=== PATIENT | female | born 2000 | race Caucasian/White ===

== ENCOUNTER 2020-11-05 13:08 | Emergency (ER) | payer OTHER, SELFPAY ==
--- NOTE | ~2020-11-05 | XR_ITS ---
EXAMINATION: XR ABDOMEN KUB CLINICAL INDICATION: Evaluate stool burden COMPARISON: None TECHNIQUE: AP view of the abdomen. FINDINGS: The bowel gas pattern is normal with no evidence of ileus or obstruction. No unusual soft tissue calcifications are noted. No significant stool burden within the colon is identified. There is mild scoliosis of the lumbar spine convex left. Visualized pelvic bones unremarkable. XR/XR KUB IMPRESSION: Normal bowel gas pattern. No significant stool burden.
[2020-11-05 13:35] VITALS: BP 144/96; PULSE 130; RESP 18; O2SAT 99; BMI 18.3
[2020-11-05 13:40] VITALS: TEMP 37
--- NOTE | 2020-11-05 14:14 | ED.ABDPAIN ---
HPI - Abdominal Pain General Chief Complaint: Abdominal Pain Stated Complaint: constipation Time Seen by Provider: 11/05/20 13:59 Source: patient Mode of arrival: ambulatory Limitations: no limitations History of Present Illness HPI narrative: 20-year-old female previously healthy here with complaints of constipation x1 week. The patient tells me that she has tried Dulcolax, 1 suppository, 1 Fleet enema but has not had a successful bowel movement. She tells me that she is able to pass a small amount of stool but it is very hard. No abdominal pain, vomiting, fevers, chills. MD elicited complaint: abdominal pain Related Data Previous Rx's Medication Instructions Recorded polyethylene glycol 3350 [Miralax] 17 g PO DAILY #119 g 11/05/20 Allergies Allergy/AdvReac Type Severity Reaction Status Date / Time sesame seed [SESAME SEED] Allergy Severe ANAPHYLAXIS Verified 11/05/20 13:39 walnut [WALNUT] Allergy Severe ANAPHYLAXIS Verified 11/05/20 13:39 Review of Systems Review of Systems Yes all other systems are reviewed and are negative Constitutional: Reports no additional constitutional complaints, Denies body ache(s), Denies chills, Denies fever(s), Denies headache(s) and Denies weakness Eyes: Reports no additional eye complaints and Denies change in vision Reports system reviewed and no additional complaints, except as documented, Denies dizziness, Denies headache(s), Denies nasal congestion, Denies nasal discharge and Denies neck pain Cardiovascular: Reports no additional cardiovascular complaints, Denies chest pain, Denies leg edema and Denies dyspnea Respiratory: Reports no additional respiratory complaints, Denies cough and Denies dyspnea Gastrointestinal: Reports no additional gastrointestinal complaints, Denies abdominal pain, Reports constipation, Denies diarrhea, Denies nausea and Denies vomiting Genitourinary: Reports no additional female genitourinary complaints and Denies urinary incontinence Musculoskeletal: Reports no additional musculoskeletal complaints, Denies back pain, Denies arthralgias, Denies joint swelling, Denies neck pain, Denies numbness and Denies tingling Skin/Breast: Reports system reviewed and no additional complaints, except as docu and Denies rash Reports system reviewed and no additional complaints, except as documented, Denies Abnormal speech present, Denies dizziness, Denies headache(s), Denies numbness, Denies tingling and Denies weakness Physical Exam Vital Signs: Vital Signs: Last Vital Signs Temp 98.6 F 11/05/20 13:40 Pulse 130 H 11/05/20 13:35 Resp 18 11/05/20 13:35 BP 144/96 H 11/05/20 13:35 Pulse Ox 99 11/05/20 13:35 Body Mass Index 18.3 Const: General: cooperative, healthy appearing, comfortable and no acute distress Orientation/consciousness: patient oriented x3 Limitations: no limitations HENMT: Head: Yes normal to inspection Ears: hearing grossly normal bilaterally General nose exam: Normal external nose present Face and sinus: Yes normal facial exam Mouth: Normal oral and palatal mucosa present Throat: Yes posterior oropharynx normal Eyes: General: appearance normal, both eyes and all related structures Pupils: Equal, round and reactive pupils present Neck: Neck: Yes normal visual inspection Chest: Chest palpation & inspection: normal inspection of the chest Resp: Effort & Inspection: normal respiratory effort Auscultation: clear to auscultation bilaterally Cardio: Rate: regular rate Rhythm: regular rhythm Peripheral pulses: Peripheral pulses 2+ throughout GI: Inspection: Yes normal to inspection Palpation (GI): Soft to palpation and nontender Auscultation: normal bowel sounds Back/Spine/Pelvis: Thoracic/Lumbar Spine: thoracic and lumbar spine normal to inspection Skin: General skin exam: no rashes or lesions noted Neuro: General: patient oriented x3, no focal motor deficits and normal sensation to monofilament Cranial nerves: Yes Equal, round and reactive pupils present Cognition (Neuro): normal cognition Speech: No Abnormal speech present Gait exam (Neuro): Normal gait present Motor exam (neuro): 5/5 motor strength present throughout Extrem: General: Yes normal to inspection Course Course Course Narrative: Constipation x1 week on relief with [id number] medications. Will check KUB. 1515-[id number] shows no significant stool burden. I did talk to the patient she tells me that she has had varying constipation and diarrhea with intermittent abdominal pain for months to years. Took this is worsened after eating. She also suffers with bloating and gas after eating. May have underlying IBS component. I reviewed this with the patient. Recommend that she follow up outpatient with GI. Reviewed worrisome signs and symptoms and when to return to the emergency department. Comfortable with discharge home. MDM - Abdominal Pain Medical Records Attestation: I reviewed the patient's medical records. Lab Data Attestation: I reviewed the patient's lab results. Labs: Lab Results 11/05/20 Range/Units 14:15 Urine Test NEGATIVE (NEGATIVE) Imaging Data kub: Attestation: I personally reviewed and interpreted this imaging study as follows: Radiologist's impression: EXAMINATION: XR ABDOMEN KUB CLINICAL INDICATION: Evaluate stool burden COMPARISON: None TECHNIQUE: AP view of the abdomen. FINDINGS: The bowel gas pattern is normal with no evidence of ileus or obstruction. No unusual soft tissue calcifications are noted. No significant stool burden within the colon is identified. There is mild scoliosis of the lumbar spine convex left. Visualized pelvic bones unremarkable. XR/XR KUB IMPRESSION: Normal bowel gas pattern. No significant stool burden. Discharge Plan Discharge Clinical Impression: Constipation Patient Disposition: Home, Self-Care Instructions: Constipation (ED) Additional Instructions: Increase fluids, fiber in the diet Start miralax as discussed Prescriptions: New polyethylene glycol 3350 [Miralax] 17 gram/dose powder 17 g PO DAILY Qty: 119 RF: 0 Referrals: Fred Carcamo [Physician] - 2 days PMF Past Medical History Attestation statement: The following information was validated with the patient. Source: old records reviewed Medical History No known health problems Social History Social History Smoking Status: Never smoker Use of substances other than those prescribed or required for medical reasons: No Advance Directives: No Advance Directives Information Provided: No
[2020-11-05 14:24] LABS: UPreg QC Valid YES; Urine Pregnancy NEGATIVE (NEGATIVE)
== END 2020-11-05 15:34 | disposition home or self-care (01) ==
PROVIDERS: Nurse Practitioner Family; Emergency Provider Emergency Medicine Emergency Medical Services; PCP Internal Medicine
DX: K59.00 Constipation, unspecified (principal)
CPT/HCPCS: 74018; 81025; 99283; 99284

== ENCOUNTER 2021-02-28 13:38 | Outpatient (REF) | payer OTHER, SELFPAY ==
--- NOTE | ~2021-02-28 | US_ITS ---
EXAMINATION: PELVIC ULTRASOUND CLINICAL INFORMATION: Pain COMPARISON: None TECHNIQUE: Transabdominal and transvaginal pelvic ultrasound was performed. Transvaginal exam was performed for better visualization of the uterus and ovaries. FINDINGS: The uterus is anteverted and measures 7.9 x 2.9 x 4.3 cm. No focal uterine lesion is seen. Endometrial thickness is normal measuring 0.3 cm. There is fluid seen in the endocervical canal. The ovaries are normal-appearing. The right ovary measures 2.5 x 1.7 x 1.3 cm and the left ovary measures 2.4 x 1.1 x 1.6 cm. There is no fluid in the pelvis. US/US pelvic and transvaginal IMPRESSION: Unremarkable exam.
[2021-02-28 14:36] LABS: MANUAL DIFF FLAG NO
[2021-02-28 14:41] LABS: Basophils Percent Auto 0.4 % (0-2); Eosinophils Absolute Auto 0.1 X10*3/uL (0.0-0.4); Hematocrit 40.6 % (37-47); Hemoglobin 13.5 g/dl (12.0-16.0); Imm Gran Abs Auto 0.04 X10*3/uL (0.00-0.03); Imm Gran Pct Auto 0.5 % (0.0-0.4); Lymphocytes Absolute Auto 2.6 X10*3/uL (1.2-4.9); Lymphocytes Percent Auto 31.4 % (20-40); Mean Corpuscular HGB Conc 33.3 g/dl (31.0-35.0); Mean Corpuscular Hemoglobin 28.6 pg (27.0-33.0); Mean Platelet Volume 9.2 fL (9.4-12.3); Monocytes Absolute Auto 0.4 X10*3/uL (0.1-1.2); Monocytes Percent Auto 4.9 % (2-11); Neutrophils Percent Auto 61.8 % (45-73); Platelet Count 289 X10*3/uL (160-400); Red Blood Count 4.72 X10*6/uL (4.20-5.50); Red Cell Distribution Width 13.2 % (11.0-16.0); White Blood Count 8.1 X10*3/uL (4.8-10.8)
[2021-02-28 15:10] LABS: Alanine Aminotransferase 7 U/L (0-31); Albumin Level 4.5 g/dL (3.5-5.0); Alkaline Phosphatase 42 U/L (39-117); Amylase 74 U/L (28-100); Aspartate Amino Transferase 15 U/L (5-31); Bilirubin Direct 0.2 mg/dL (0.0-0.5); Bilirubin Total 0.6 mg/dL (0.0-1.0); C Reactive Protein 0.09 mg/dL (< or = 0.50); Lipase 33 U/L (8-78); Total Protein 7.1 g/dL (6.5-8.0)
[2021-02-28 15:25] LABS: Erythrocyte Sedimentation Rate 1 MM/HR (0-20)
[2021-02-28 15:36] LABS: TSH reflex Free T4 1.63 uIU/mL (0.32-4.0)
[2021-03-02 16:52] LABS: Immunoglobulin A 114 mg/dL (47-310)
[2021-03-06 22:22] LABS: Gliadin Deamidated IgA Ab 2 Units; Gliadin Deamidated IgG Ab 1 Units
[2021-03-07 13:42] LABS: Transglutaminase Ab IgG 2 U/mL; Transglutaminase IgA 1 U/mL
[2021-03-08 15:56] LABS: Endomysial IgA Antibody Negative (Negative)
== END 2021-02-28 13:39 | disposition home or self-care (01) ==
LOC: HO.US 13:38
PROVIDERS: PCP Internal Medicine; Visit Provider Internal Medicine
DX: K58.2 Mixed irritable bowel syndrome (principal); R10.30 Lower abdominal pain, unspecified
CPT/HCPCS: 36415; 76830; 76856; 80076; 82150; 82784; 83516; 83690; 84443; 85025; 85652; 86140; 86255; 86256

== ENCOUNTER 2022-06-05 09:06 | Outpatient (REF) | payer OTHER, SELFPAY ==
[2022-06-05 11:05] LABS: MANUAL DIFF FLAG NO
[2022-06-05 11:10] LABS: Basophils Percent Auto 0.3 % (0-2); Eosinophils Absolute Auto 0.2 X10*3/uL (0.0-0.4); Eosinophils Percent Auto 1.3 % (0-4); Hematocrit 40.8 % (37.0-47.0); Hemoglobin 13.8 g/dl (12.0-16.0); Imm Gran Abs Auto 0.04 X10*3/uL (0.00-0.03); Imm Gran Pct Auto 0.3 % (0.0-0.4); Lymphocytes Absolute Auto 2.6 X10*3/uL (1.2-4.9); Lymphocytes Percent Auto 22.1 % (20-40); Mean Corpuscular HGB Conc 33.8 g/dl (31.0-35.0); Mean Corpuscular Hemoglobin 27.7 pg (27.0-33.0); Mean Corpuscular Volume 81.8 fL (80.0-98.0); Mean Platelet Volume 8.9 fL (9.4-12.3); Monocytes Absolute Auto 0.6 X10*3/uL (0.1-1.2); Monocytes Percent Auto 5.1 % (2-11); Neutrophils Absolute Auto 8.4 x10*3/uL (2.0-8.3); Neutrophils Percent Auto 70.9 % (45-73); Platelet Count 395 X10*3/uL (160-400); Red Blood Count 4.99 X10*6/uL (4.20-5.50); Red Cell Distribution Width 13.6 % (11.0-16.0); White Blood Count 11.9 X10*3/uL (4.8-10.8)
[2022-06-05 11:32] LABS: Alanine Aminotransferase 12 U/L (0-31); Albumin Level 4.2 g/dL (3.5-5.0); Alkaline Phosphatase 47 U/L (39-117); Anion Gap 15 (12-20); Aspartate Amino Transferase 16 U/L (5-31); Bilirubin Total 0.4 mg/dL (0.0-1.0); Blood Urea Nitrogen 11 mg/dL (9-16); Calcium 9.8 mg/dL (8.4-10.2); Carbon Dioxide 26 mmol/L (22-29); Chloride 106 mmol/L (96-108); Estimated Glomerular Filt Rate > 60; Glucose Random 90 mg/dL (60-115); Potassium 5.2 mmol/L (3.3-5.1); Sodium 142 mmol/L (135-145); Total Protein 6.9 g/dL (6.5-8.0)
[2022-06-05 11:57] LABS: Free T4 (Free Thyroxine) 1.13 ng/dL (0.71-1.85); Thyroid Stimulating Hormone 1.83 uIU/mL (0.32-4.0)
== END 2022-06-05 09:07 | disposition home or self-care (01) ==
LOC: HO.MANLDS 09:06
PROVIDERS: Visit Provider Physician Assistant
DX: Z00.00 Encounter for general adult medical examination without abnormal findings (principal)
CPT/HCPCS: 36415; 80053; 84439; 84443; 85025

== ENCOUNTER 2022-06-12 10:40 | Outpatient (REF) | payer OTHER, SELFPAY ==
[2022-06-12 16:29] LABS: CDiff Gene PCR POSITIVE (Negative)
[2022-06-12 17:51] LABS: CDIFF Internal ctrl Dots and bkg OK (V)
[2022-06-12 19:37] LABS: CDiff Toxin Positive (Negative)
== END 2022-06-12 10:41 | disposition home or self-care (01) ==
LOC: HO.MANLDS 10:40
PROVIDERS: Visit Provider Internal Medicine
DX: R19.7 Diarrhea, unspecified (principal)
CPT/HCPCS: 36415; 87324; 87493

== ENCOUNTER 2022-07-18 12:23 | Outpatient (REF) | payer OTHER, SELFPAY ==
[2022-07-18 18:01] LABS: Alanine Aminotransferase 10 U/L (0-31); Albumin Level 4.4 g/dL (3.5-5.0); Alkaline Phosphatase 40 U/L (39-117); Amylase 70 U/L (28-100); Anion Gap 14 (12-20); Aspartate Amino Transferase 16 U/L (5-31); Bilirubin Total 0.4 mg/dL (0.0-1.0); Blood Urea Nitrogen 16 mg/dL (9-16); C Reactive Protein 0.15 mg/dL (< or = 0.50); Calcium 9.6 mg/dL (8.4-10.2); Carbon Dioxide 27 mmol/L (22-29); Chloride 103 mmol/L (96-108); Estimated Glomerular Filt Rate > 60; Gamma Glutamyl Transpeptidase 12 U/L (7-33); Glucose Random 80 mg/dL (60-115); Lipase 28 U/L (8-78); Potassium 4.1 mmol/L (3.3-5.1); Sodium 140 mmol/L (135-145); Total Protein 7.1 g/dL (6.5-8.0)
[2022-07-18 18:14] LABS: Erythrocyte Sedimentation Rate 2 MM/HR (0-20)
== END 2022-07-18 12:24 | disposition home or self-care (01) ==
LOC: HO.MANLDS 12:23
PROVIDERS: Visit Provider Physician Assistant
DX: K52.9 Noninfective gastroenteritis and colitis, unspecified (principal)
CPT/HCPCS: 36415; 80053; 82150; 82977; 83690; 85652; 86140

== ENCOUNTER 2022-07-24 09:18 | Outpatient (REF) | payer OTHER, SELFPAY | END 2022-07-24 09:19 | disposition home or self-care (01) | LOC: HO.MANLDS 09:18 | PROVIDERS: Visit Provider Internal Medicine | DX: Z13.89 Encounter for screening for other disorder (principal) ==

== ENCOUNTER 2024-12-30 14:47 | Outpatient (REF) | payer OTHER, SELFPAY ==
--- OUTSIDE RECORDS SUMMARY | 2024-12-30 17:00 | XMS_ITS | Encounter Summary ---
Author Organization [facility] Address [address] [place] [address] Phone Care Team Providers Care [employer] Name Role Phone Nayana Morales MD Primary Care Provider [phone] Encounter Details Date Type Department Care Team (Late st Contact Info) Description 05/01/2017 Conversion Encounter [facility] - [address], [address] [place] [address] Nayana Morales MD [address] [place] [address] Social History Tobacco Use Types Packs/Day Years Used Date Smoking Tobacco: Never Assessed Comments Unknown Sex and Gender Information Value Date Recorded Sex Assigned at Not on file Legal Sex Female 5:44 PM EST Gender Identity Not on file Sexual Orientation Not on file documented as of this encounter Plan of Treatment Not on file documented as of this encounter Visit Diagnoses Not on filedocumented in this encounter Care Teams [employer] Relationship Specialty Start Date End Date Nayana Morales MD [address] [place] [address] PCP - General 11/13/16 09/22/20 documented as of this encounter
--- OUTSIDE RECORDS SUMMARY | 2024-12-30 17:00 | XMS_ITS | Data Portability ---
Author Organization [facility], Home Service Address [address] [place] [address] Assessment Encounter Date Assessment Date Assessment LastModified by Organization Details LastModified Time 10/19/2022 10/19/2022 Patient agreed and verbally consents to this audio and video Telehealth appt via a secure platform [email or web address] Not available 10/19/2022 11:20:10 06/25/2023 06/25/2023 Patient agreed and verbally consents to this audio and video Telehealth appt via a secure platform [email or web address] Not available 06/25/2023 15:01:00 Plan of Treatment Reminders Order Date Submit Date Provider Last Modified By Organization Details Last Modified Time Details Appointments None recorded. Lab CMP, serum or plasma 2021 [facility], [address] [place] [address], [id number], 08:11:24 C-reactive protein, quantitati ve, serum or plasma 2021 [facility], [address] [place] [address], [address], 12:19:12 erythrocyt e sedimentat ion rate by westergren method 2021 [facility], [address] [place] [address], [address], 12:19:11 gastrointe stinal pathogens panel, PCR, stool 2021 [facility], [address] [place] [address], [address], 12:19:12 amylase + lipase, serum 2021 [facility], [address] [place] [address], [address], 12:19:11 gamma-glut amyl transferas e (ggt), serum 2021 [facility], [address] [place] [address], [address], 12:19:11 Referral None recorded. Procedures None recorded. Surgeries None recorded. Imaging None recorded. Medication Orders Zithromax Z-Ajay [address] [facility]acy #[id number], [address] [place], [address], 3 15:00:36 sumatripta n 50 mg tablet [address] [facility]acy #5, [address] [place], [address], 3 09:54:39 prednisone 10 mg tablet 2022 023 [facility]Pharmacy #5, [address] [place], [address], 3 11:19:42 erythromyc in 5 mg/gram (0.5 %) eye ointment 2022 023 [facility]acy #5, [address] [place], [address], 3 11:19:38 Patient TargetsNo targets recorded. Patient InstructionsNo instructions recorded. Reason for Referral None Reported. Results Created Date Observation Date Name Description Value Unit Range Abnormal Flag Note LastModifiedBy Organization Detail LastModifiedTime Result Notes None recorded. Problems Name Problem SNOMED Code Status Onset Date Resolution Date Notes Provider Name and Address Organization Details Recorded Time Multiple benign melanocyti c nevi 466585560 Active 2021 Not Available [facility] 2 04:36:07 Acute pharyngiti s 120741955 Active 2021 Not Available [facility] 2 04:36:07 Diarrhea 68572948 Active 2021 NICOLE GLOVER [address] [place] [address], [address], [facility] 2 14:10:31 Clostridiu m difficile colitis 284862714 Active 2021 Noam Garcia DO [address] [place] [address], [address], [facility] 2 14:53:31 Colitis 69720624 Active 2021 NICOLE GLOVER [address] [place] [address], [address], [facility] 2 12:16:40 Cellulitis of eyelid 136506823 Active 2022 NICOLE GLOVER [address] [place] [address], [address], [facility] 3 11:03:11 Eczema 35731108 Active 2022 NICOLE GLOVER [address] [place] [address], [address], [facility] 3 11:05:37 Migraine without aura 00730489 Active 2022 NICOLE GLOVER [address] [place] [address], [address], [facility] 3 09:53:23 Acute sinusitis 94859449 Active 2022 NICOLE GLOVER [address] [place] [address], [address], [facility] 3 15:00:18 Palpitatio ns 69994466 Active 2023 NICOLE GLOVER [address] [place], [address], [facility] 4 11:10:24 Anxiety 38704965 Active 2017 Not Available [facility] 2 04:36:07 Problem Notes None recorded. Medical Equipment None Reported. Allergies Allergen ID Allergen Name Allergen Category Reaction Reaction Severity Criticality Documentation Date Start Date Code Code System Note Provider Name and Address Organization Details Recorded Time 6024 Augmentin medicatio n Not available Not available Not available 06/13/2022 55521 2 RxNorm c diff Noam AshwinJaspal Garcia, DO [address] [place], [address], [facility] 2 11:45:14 Medications Name Sig Start Date Stop Date Status Note LastModified by Organization Details LastModified Time prednisone 10 mg tablet TAKE 4 TABS DAILY FOR 2 DAYS, 3 TABS FOR 2 DAYS, 2 TABS FOR 2 DAYS, 1 TAB FOR 2 DAYS 10/19 completed Not Available Not Available Not Available clindamycin HCl 300 mg capsule TAKE 1 CAPSULE BY MOUTH THREE TIMES A DAY DIRECTED 05/21 completed Not Available Not Available Not Available azithromyci n 250 mg tablet TAKE 2 TABLETS BY MOUTH TODAY, THEN TAKE 1 TABLET DAILY FOR 4 DAYS DIRECTED active Not Available Not Available No t Available Lidocaine Viscous 2 % mucosal solution Take 15 mL every 3 hours by oral route for 7 days. 05/21 completed Not Available Not Available Not Available benzonatate 200 mg capsule Take 1 capsule 3 times a day by oral route as needed for 7 days. 03/19 completed Not Available Not Available Not Available prednisone 20 mg tablet TAKE 1 TABLET BY MOUTH EVERY DAY FOR 7 DAYS 03/19 completed Not Available Not Available Not Available sumatriptan 50 mg tablet TAKE ONE TABLET NEEDED FOR MIGRAINE MAY REPEAT DOSE X1 AFTER 2H MAX OF 200MG/DAY active Not Available Not Available No t Available sulfamethox azole 800 mg-trimetho prim 160 mg tablet Take 1 tablet every 12 hours by oral route. 11/17 completed Not Available Not Available Not Available vancomycin 125 mg capsule TAKE 1 CAPSULE BY MOUTH EVERY 6 HOURS FOR 10 DAYS 07/18 completed Not Available Not Available Not Available amoxicillin 875 mg tablet TAKE 1 TABLET BY MOUTH EVERY 12 HOURS FOR 7 DAYS 05/21 completed Not Available Not Available Not Available erythromyci n 5 mg/gram (0.5 %) eye ointment APPLY 1 CM RIBBON INTO THE LOWER CONJUNCTI CARMELO SAC(S) IN THE AFFECTED EYE(S) 3 TIMES PER DAY active Not Available Not Available No t Available oseltamivir 75 mg capsule 03/11 completed Not Available Not Available Not Available fluoxetine 10 mg capsule 03/11 completed Not Available Not Available Not Available polyethylen e glycol 3350 17 gram/dose oral powder 03/19 completed Not Available Not Available Not Available methylpredn isolone 4 mg tablets in a dose pack TAKE 6 TABLETS ON DAY 1 DIRECTED ON PACKAGE AND DECREASE BY 1 TAB EACH DAY FOR A TOTAL OF 6 DAYS 05/21 completed Not Available Not Available Not Available fluoxetine 20 mg capsule 02/07 completed Not Available Not Available Not Available fluticasone propionate 50 mcg/actuati on nasal spray,suspe nsion [place] 1 spray every day by intranasa l route. 03/19 completed Not Available Not Available Not Available sertraline 50 mg tablet 02/07 completed Not Available Not Available Not Available dicyclomine 10 mg capsule 03/19 completed Not Available Not Available Not Available amoxicillin 875 mg-potassiu m clavulanate 125 mg tablet TAKE 1 TABLET BY MOUTH 2 TIMES A DAY FOR 14 DAYS. 05/21 completed Not Available Not Available Not Available Simpesse 0.15 mg-30 mcg (84)/10 mcg(7) tablets,3 month dose pack TAKE 1 TABLET BY MOUTH EVERY DAY 2023 active Not Available Not Available Not Edai lable Vitals Date Recorded Body height Oxygen saturation Oxygen saturation in Arterial blood by Pulse oximetry Heart rate Systolic blood pressure Diastolic blood pressure Provider Name and Address Organization Details Last Updated DateTime 2 156.85 cm 99 % 99 % 102 /min 120 mm[Hg] 70 mm[Hg] Lily Burgos [place] - [facility] 2 12:08:09 Date Recorded Body height Oxygen saturation Oxygen saturation in Arterial blood by Pulse oximetry Heart rate Systolic blood pressure Diastolic blood pressure Provider Name and Address Organization Details Last Updated DateTime 3 156.85 cm 98 % 98 % 100 /min 128 mm[Hg] 70 mm[Hg] Lily Funezner [facility] 3 10:55:44 Date Recorded Body height Body mass index (BMI) Body weight Heart rate Oxygen saturation Oxygen saturation in Arterial blood by Pulse oximetry Systolic blood pressure Diastolic blood pressure Provider Name and Address Organization Details Last Updated DateTime 3 156.85 cm 22.1 kg/m2 60892.0 8 g 117 /min 98 % 98 % 128 mm[Hg] 80 mm[Hg] Lorie Santos [facility] 3 09:45:41 Social History Question Answer Notes LastModified by Organizat ion Details LastModified Time Tobacco Smoking Status Never Smoker [facility] 03/11/2018 10:44:21 What Was The Date Of Your Most Recent Tobacco Screening? 03/19/2023 [email or web address] Information not available 03/19/2023 Do You Or Have You Ever Used Any Other Forms Of Tobacco Or Nicotine? No [email or web address] Information not available 03/19/2023 Sex: Unknown Functional Status None recorded. Mental Status None recorded. Family History Relationship Description Onset Age of this Age Resolved Age Notes LastModified by Organization Details LastModified Time Father No current problems or disability karon Not available 03/11 10:49:30 Mother No current problems or disability karon Not available 03/11 10:49:30 Medical History Condition Response Coronary Artery Disease N Gout N Kidney Stones N Blood Diseases N Hyperthyroidism N Blood Transfusion N Breast Cancer N Lung Disease N Depression Y COPD N Defects or Inherited Disease N Difficulty Swallowing N Meniere's disease N Anxiety Disorder Y Muscle, Joint, or Bone Problems N Obesity N Vision or Eye Problems Y Arthritis N Mental Disorder N Cancer N Stroke N Bladder or Kidney Problems N High Cholesterol N Liver Disease N Fibromyalgia N Headaches N Kidney Disease N Allergies/Hayfever Y Heart Problems N Hospitalizations Y Thyroid Problems N GI Problems N Eating Disorder N Anemia N MRSA exposure N Constipation N Mental Illness Y Diabetes N Seizures/Epilepsy N Tuberculosis N Congestive Heart Failure (CHF) N Eczema N Abuse/Domestic Violence N Diverticulitis N Asthma N Reflux/GERD N Hepatitis N Heart Disease N Pulmonary Embolism N Chronic Ear Infections N Hypertension N Chicken Pox N Autism Spectrum Disorder (ASD) N Osteoporosis N Thrombophilias N Gynecological History Statement/Question Response Sexually Active? Y STIs/STDs N Menses Monthly N HPV Vaccine N Sexual Problems? N Current Control Method BCPs Age at Menarche 12 Desired Control Method BCPs LMP Definite Obstetrics History GPAL:G 0 P 0 0 0 0 Immunizations Vaccine Type Date Status Note Provider Nam e and Address Organization Details Recorded Time COVID-19, mRNA, LNP-S, PF, 100 mcg/0.5mL dose or 50 mcg/0.25mL dose 1 completed Not Available [facility] 05/03/2022 04:36:08 COVID-19, mRNA, LNP-S, PF, 100 mcg/0.5mL dose or 50 mcg/0.25mL dose 1 completed Not Available [facility] 05/03/2022 04:36:08 Tdap 0 completed Not Available [facility] 05/03/2022 04:36:08 meningococcal C conjugate 1 completed Not Available [facility] 05/03/2022 04:36:08 meningococcal C conjugate 6 completed Not Available [facility] 05/03/2022 04:36:08 pneumococcal, unspecified formulation 0 completed Not Available [facility] 05/03/2022 04:36:08 pneumococcal, unspecified formulation 0 completed Not Available [facility] 05/03/2022 04:36:08 Past Encounters Encounter ID Performer Location Encounter Start Date Encounter Closed Date Diagnosis/Indication Diagnosis SNOMED-CT Code Diagnosis ICD10 Code Diagnosis Note [id number] Анна Piper NP, [facility] [address] [place] [address] 03/11/2018 10:37:11 03/11/2018 11:36:36 Adult health examination 829522870 Z00.00 Active or passive immunization 300666623 Z23 discussed HPV vaccine [id number] Анна Piper NP, [facility] [address] [address], [place] [address] 09/10/2018 14:16:28 09/10/2018 15:01:55 Urinary tract infectious disease 05623563 N39.0 [id number] Анна Piper NP, S [facility] [address], [place] [address] 11/17/2018 11:26:51 11/17/2018 12:37:51 Tachycardia 3995453 R00.0 Dyspnea 412532071 R06.02 Anxiety 91135060 F41.9 [id number] Анна Piper NP, S [facility] [address], [place] [address] 11/19/2018 11:12:46 11/19/2018 11:41:37 Sinus tachycardia 40799155 R00.0 Dyspnea 551153602 R06.02 Anxiety 83012232 F41.9 Renewal of prescription 092681517 Z76.0 [id number] NICOLE GLOVER [facility] [address], [address] [facility] [place] [address] 2020 15:25:05 2020 16:00:32 Adult health examination 381784457 Z00.00 will do blood work Venereal d isease screening 121857111 Z11.3 did clean catch when was supposed to do dirty urine will do a chlamydia and gonorrhea panel [id number] NICOLE GLOVER [facility] [address], [place] [address] 11/18/2020 08:26:20 11/18/2020 16:37:59 Irritable bowel syndrome 68507676 K58.9 will send in referral to GI for patient as the referral was not sent for her in the ER and no one has contacted her Anxiety 52442021 F41.9 possible component of her IBS, patient does not wish to start on medication s at this time [id number] NICOLE GLOVER [facility] [address], [place] [address] 07/11/2021 10:41:44 07/11/2021 16:05:31 Acute maxillary sinusitis 31142460 J01.00 given anbx, flonase and benzonatat e for symptoms Acute bronchitis 7924726 2 J20.9 tested at [facility] today, will call to let us know results Cough 11029281 R05.1 given anti-tussi ve Posterior rhinorrhea 758 81266 R09.82 flonase for post-nasal [id number] NICOLE GLOVER [facility] [address] [facility] [address] [address] 03/19/2022 13:32:51 03/19/2022 14:21:27 Uses oral contraception 7721193 Z30.41 will send refill Multiple b enign melanocytic nevi 864005701 D22.5 will monitor [id number] NICOLE GLOVER [facility] [address] [facility] [address], [place] [address] 04/30/2022 11:27:00 04/30/2022 14:37:32 Acute pharyngitis 084132366 J02.0 will fu with abx and steriod [id number] NICOLE GLOVER [facility] [address], [place] [address] 05/21/2022 15:31:49 05/21/2022 15:51:11 Active or passive immunization 920182065 Z23 advised Adult heal th examination 390807967 Z00.00 bw goodBP stable Depression screening 171 803620 Z13.31 stable [id number] Noam Garcia DO [facility] [address],[place] [address] 06/13/2022 10:50:09 06/13/2022 13:27:34 Clostridium difficile colitis 906144472 A04.72 possible with timing of diarrhea and antibiotic use (augmentin )will tx with vanco ordered by RT and will see how she doeswill need to rechk c diff titre AFTER she has completed abx will arrange to see RT in a couple weeks [id number] NICOLE GLOVER [facility] [address] [facility] [address] [address] 07/04/2022 10:08:52 07/04/2022 13:33:05 Clostridium difficile colitis 171594745 A04.72 will restart another 10 days of vanco to ensure complete resolution of symptoms and infection [id number] NICOLE GLOVER [facility] [address],[place] [address] 07/18/2022 11:54:03 07/18/2022 13:54:22 Clostridium difficile colitis 703704755 A04.72 will recheck labs Colitis 23678065 K52.9 will fu with lab work and stool culture [id number] NICOLE GLOVER [facility] [address] [address],[place] [address] 10/12/2022 10:51:01 10/12/2022 12:17:40 Cellulitis of eyelid 103071472 H00.033 start bothalso use abx Eczema 22961422 L30.9 fu in a month [id number] NICOLE GLOVER [facility] [address] [facility] [address] [address] 10/19/2022 09:09:17 10/22/2022 16:28:15 Cellulitis of eyelid 781440096 H00.033 resolvedwi ll just monitor for now [id number] NICOLE GLOVER [facility] [address] [facility] [address] [address] 03/19/2023 09:42:32 03/19/2023 10:19:19 Migraine without aura 94140910 G43.009 will trial patient on abortive therapy and she will let me know if anything changes [id number] NICOLE GLOVER [facility] [address] [facility] [address] [address] 06/25/2023 11:20:50 06/25/2023 15:39:17 Acute sinusitis 44607256 J01.90 will start short course z pakavoid any other meds due to c diff hxavoiding PCNS Health Concerns Section Related Observation LastModified by Organization Detai ls LastModified Time None Recorded Concern Status LastModified by Organization Details LastModified Time None Recorded Advance Directives Directive None Recorded Payers Encounter Date Sequence Insurance Name Policy Number Policy Gutierrez Covered Member ID Gutierrez Member ID Guarantor Name 07/18/2022 1 [facility] [facility] (POS) [id number] Go Paul [id number] Go Paul 10/12/2022 1 [facility] (POS) [id number] Go Paul [id number] Go Paul 10/19/2022 1 [facility] ([facility]) [id number] Go Paul [id number] Go Paul 03/19/2023 1 [facility] (POS) [id number] Go Paul [id number] Go Paul 06/25/2023 1 [facility] Go Paul [id number] Go Paul Notes Date Note Type Note Provider Name a nd Address Organization Details Recorded Time 2 text/html 2 week fu the patient reports that she is now having only one bowel movement a daynormal color but is looser than her regular stoolfinished two course of abx at this pointpossibly with hx of IBS she is just having lingering symptomsbut will repeat work up to assure her bowel health is improving NICOLE GLOVER [address] [place], [address], [facility] 07/18/2022 12:24:42 3 text/html c/o eczema eyes swollen, red and itchy eyelidsno EOMI, no blurred vision, no vision changes, no eye painboth her upper and lower eyelids affectedstarted a month ago, hx of eczemahas been using a topical cream for eye dermatitis, but not newnothing changed that would cause a flare up or allergic reaction for the patient will start pred tapertrial topical cream in the meantime for abx (avoiding oral use as she has just recently this summer had C. Diff) will recheck in a weekcan also use a combo of aloe vera and cool compresses NICOLE GLOVER [address] [facility], [place], [address], [facility] 10/12/2022 11:10:26 3 text/html 1 week f/u tele-med phone callpatient consents to phone call patient reports that treatment workedher eyelids are back to baselineno EOMI, no discharge, no itching also the medications did not upset her stomachher bowel movement are regular, well formed will monitorshe will update me next week if it starts to worsen NICOLE GLOVER [address] [place], [address], [facility] 10/19/2022 11:25:18 3 text/html c/o migraine the patient had a migraine which symptoms are not her usual medicationsthe patient reports that she had flashing lights in her left eye, dizzy, light headed after the onset of the migrainenothing to suggest an aurano vision changes otherwisedenies tinnitus, photophobia, phonophobia could be weather related the patient has 10 to 15 headache days a monthmigraines are less common no change in her environment pulsatile on the left side of her head she does not frequently get migraines...so after discussion she declined a maintenance medication but does agree to an abortive medication for when she gets a migraine agreed to thispatient will let me know if it was helpful or not NICOLE GOLVER [address] [place], [address], [facility] 03/19/2023 09:58:30 3 text/html c/o sinus infection telemed phone callpt consents to phone call patient has had a fever Tmax 100 F, facial pain, sinus pressure, green mucus production and teeth painnasal congestion and post nasal start on z ajay monitor symptomsif she develops diarrhea she knows to call immediately NICOLE GLOVER [address] [place], [address], [facility] 06/25/2023 15:03:33 OBGyn Episode No OBEpisode recorded.
--- OUTSIDE RECORDS SUMMARY | 2024-12-30 17:00 | XMS_ITS | Clinical Summary ---
Author Organization [facility] Address [address] [place] [phone] Phone Care Team Providers Care Paper Colorer Name Role Phone Unavailable Primary Care Provider Unavailabl e Allergies Active Allergy Reactions Criticality Noted Date Comments Sesame Seed (Diagnostic) Tree Nuts (Food) Medications EPINEPHrine 0.3 MG/0.3ML injection syringe Inject 0.3 mg into the muscle once as needed for anaphylaxis. May repeat dose after 10 min prn persisting anaphlaxis Active Multiple Vitamins-Minerals (MULTIVITAMIN ADULT) tablet Take 1 tablet by mouth once daily. Active ASHLYNA 0.15-0.03 &0.01 MG tabletIndications :Encounter for contraceptive management, unspecified type take 1 tablet by mouth once daily 1 each 3 7 Active Active Problems Problem Noted Date Diagnosed Date Disturbed sensory perception 07/10/2017 Overview (07/10/2017): acute episode 07/07/17 of visual disturbance, bilateral upper extremity numbness/tingling, difficulty with speaking/understanding words for 30-45min during time she developed 8/10 frontal ORO (on top of pre-existing 2/10 ORO post minor head injury-- lamp fell on head 3 d before) that lasted 2-3H. No photophobia, minimal nausea. No prior migraine. No carrie-menstrual Assessment & Plan (07/10/2017 9:41 AM EDT): acute episode 07/07/17 of visual disturbance, bilateral upper extremity numbness/tingling, difficulty with speaking/understanding words for 30-45min during time she developed 8/10 frontal ORO (on top of pre-existing 2/10 ORO post minor head injury-- lamp fell on head 3 d before) that lasted 2-3H. No photophobia, minimal nausea. No prior migraine. Not carrie-menstrual--- suspect migraine aura Contraception management 03/16/2016 Scoliosis 03/16/2016 Anxiety 10/20/2015 Depression 10/20/2015 Sleep disturbance 08/31/2015 Food allergy 07/08/2015 Immunizations Immunization Administration Dates Next Due DTaP 02/11/2003, 0,1999, 999,1999 HPV Vaccine 9 Valent 03/12/2015 HPV, Quadrivalent 08/01/2013,05/13/2013 Hep B, ped/adol 1999,1999,1999 Hib (PRP-T) 05/07/2000, 9,1999, 999 IPV 02/11/2003, 0,1999, 999 Influenza 08/01/2013,07/08/2012,08/15/2011 MMR 02/11/2003,05/07/2000 Meningococcal Conj (Menactra) MCV4P 03/16/2016,0 02/12/2011 Pneumococcal Conjugate 08/20/2000,05/07/2000 Tdap 04/17/2010 Varicella 03/18/2008,02/13/2000 Family History Relation Name Status Comments Father Alive Father: hyperli pidemia Maternal Grandfather Mat GFa ther: hypertension, stroke Mother Alive Mother: anorexi a nervosa Other 1 hypertension Other 2 hypertension Other 3 Alive anorexia nervos a Other 4 Alive hyperlipidemia Other 5 hypertension, s troke Paternal Grandfather Pat GFa ther: hypertension Paternal Grandmother Pat GMo ther: hypertension Social History Tobacco Use Types Packs/Day Years Used Date Smoking Tobacco: Never Assessed Comments Unknown Sex and Gender Information Value Date Recorded Sex Assigned at Not on file Legal Sex Female 5:44 PM EST Gender Identity Not on file Sexual Orientation Not on file Last Filed Vital Signs Vital Sign Reading Time Taken Comments Blood Pressure 120/74 04/16/2017 12:00 AM EDT Pulse 127 04/16/2017 12:00 AM EDT Temperature 36.8 ??C (98.2 ??F) 07/10/2017 9:00 AM ED T Respiratory Rate - - Oxygen Saturation 99% 05/28/2017 12:00 AM EDT Inhaled Oxygen Concentration - - Weight 46.4 kg (102 lb 3.3 oz) 05/28/2017 12:00 AM EDT Height 157.5 cm (5' 2 ) 04/16/2017 12:00 AM EDT Body Mass Index 18.69 04/16/2017 12:00 AM EDT Plan of Treatment Health Maintenance Due Date Last Done Comments DTaP,Tdap,and Td Vaccines (7 - Td or Tdap) 04/17/2020 04/17/2010, 02/11/2003, 08/20/2000, Additional history exists Influenza Vaccines (#1) 2024 08/01/20 13, 07/08/2012, 08/15/2011 COVID-19 Vaccine ( season) 2024 Hepatitis B Vaccines Completed 1999, 1999, 1999 HIB Vaccines Completed 05/07/2000, 07/26, 1999, Additional history exists Pneumococcal Vaccine Completed 08/20/2000, 05/07/20 00 IPV Vaccines Completed 02/11/2003, 01/22, 1999, Additional history exists MMR Vaccines Completed 02/11/2003, 05/07/2000 Varicella Vaccines Completed 03/18/2008, 02/13/2000 HPV Vaccines Completed 03/12/2015, 11/0 05/2013, 05/13/2013 Meningococcal Vaccine Completed 03/16/2016, 011 Hepatitis A Vaccines Aged Out No long er eligible based on patient's age to complete this topic Men B Vaccine Aged Out No longer elig ible based on patient's age to complete this topic Procedures * Due to [place] [employer] law, this organization might not be sharing sensitive test results. Procedure Name Priority Date/Time Associated Diagnosis Comments CHLAMYDIA TRACHOMATIS, AMPLIFIED Routine 03/19/2016 12:00 AM EDT from Last 3 Months or Most Recently Relevant to Health Maintenance Results * Due to [place] [employer] law, this organization might not be sharing sensitive test results. 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
[2024-12-31 06:39] LABS: Hepatitis B Surface Ab Qnt 82 mIU/mL (> OR = 10)
[2024-12-31 09:08] LABS: Varicella IgG Antibody 4.85 S/CO
[2024-12-31 09:19] LABS: Rubella IgG Antibody 2.75 Index; Rubeola IgG (Measles) >300.00 AU/mL
== END 2024-12-30 14:48 | disposition home or self-care (01) ==
LOC: HO.MANLDS 14:47
PROVIDERS: Visit Provider Physician Assistant
DX: Z13.89 Encounter for screening for other disorder (principal)
CPT/HCPCS: 36415; 86317; 86735; 86762; 86765; 86787

== ENCOUNTER 2025-03-13 14:23 | Emergency (ER) | payer OTHER, SELFPAY ==
--- NOTE | ~2025-03-13 | CT_ITS ---
CLINICAL HISTORY: head strike CT head without contrast Comparison: None provided Findings: No intra-axial mass, midline shift, hydrocephalus, or acute hemorrhage. No significant atrophy-like change or white matter disease. The visualized paranasal sinuses and mastoid air cells are normal. The orbits are within normal limits. There is no acute fracture. IMPRESSION: 1. No acute intracranial findings. This document has been electronically signed by: Dandy Haskins MD on 03/13/2025 15:44:56
[2025-03-13 14:26] VITALS: BP 155/100; PULSE 108; RESP 16; TEMP 36.2; O2SAT 99; BMI 23.4
--- NOTE | 2025-03-13 14:30 | ED_ITS ---
HPI - Head Injury General Chief complaint: Head Injury Stated complaint: head inj Time Seen by Provider: 03/13/25 14:51 Related Data Previous Rx's ?Medication ?Instructions ?Recorded polyethylene glycol 3350 17 17 g PO DAILY #119 grams 0 11/05/20 gram/dose oral powder (Miralax) Allergies Allergy/AdvReac Type Severity Reaction Status Date / Time sesame seed (SESAME SEED) Allergy Severe ANAPHYLAXIS Verified 03/13/25 14:32 walnut (WALNUT) Allergy Severe ANAPHYLAXIS Verified 03/13/25 14:32 [facility] Past Medical History Medical History No known health problems Social History Social History Smoked in Last 30 Days: No Use of substances other than those prescribed or required for medical reasons: No Advance Directives: No Advance Directives Information Provided: No Do you have a plan to hurt others: No Plan Patient : No Physical Exam Vital Signs: Vital Signs: Last Vital Signs Temp 97.4 F 03/13/25 17:05 Pulse 76 03/13/25 17:05 Resp 14 03/13/25 17:05 BP 119/82 03/13/25 17:05 Pulse Ox 98 03/13/25 17:05 O2 Del Method Room Air 03/13/25 17:05 BMI result Body Mass Index 23.4 Course Course Course Narrative: This is an RME: Additional HPI, ROS, PE not included below will be deferred to primary provider. RME assessment and note performed by: Mignon Harrell PA-C This is a [id number]-female who presents to the ER with complaints of head injury. Reports that 3 days ago she accidentally struck her head on a glass shelf. No LOC. Reporting since she has had headaches and feeling fatigued. She is neurologically intact Plan: CT head. Discharge Plan Discharge Clinical Impression: Closed head injury Patient Disposition: Home, Self-Care Instructions: Head Injury (ED) Prescriptions: No Action polyethylene glycol 3350 [Miralax] 17 gram/dose powder 17 g PO DAILY Qty: 119 0RF Referrals: Noam Garcia MD [Primary Care Provider, Medical] - 3 days Interventions: ED Discharge Assessment Last Done: 03/13/25 17:05 Discharge Date/Time: 03/13/25 17:11 Print Language: Amharic
[2025-03-13 15:30] VITALS: BP 137/88; PULSE 100; RESP 14; TEMP 36.4; O2SAT 100
--- NOTE | 2025-03-13 15:34 | PC.NURSE ---
Patient presents to ED c/o nonradiating head pain rated 3/10. PAtient hit the front of her head at work on Saturday. Denies LOC, SOB, and vision changes. Patient experiences nausea but its intermittent, no vomiting. Eyes PERRLA. Head CT complete, results pending. VSS and up to date. Plan of care on going.
--- NOTE | 2025-03-13 16:52 | ED.HEATRA ---
HPI - Head Injury General Chief complaint: Head Injury Stated complaint: head inj Time Seen by Provider: 03/13/25 14:51 History of Present Illness HPI Narrative: Patient is a 25-year-old female presents today after hitting the corner of a class table to her forehead there is a small lump there. Patient denies any change in vision feels a little more tired there is no nausea no vomiting. Patient is from home not on blood thinners. The incident happened 3 days ago. Ambulated to the ED Related Data Previous Rx's ?Medication ?Instructions ?Recorded polyethylene glycol 3350 17 17 g PO DAILY #119 grams 11/05/20 gram/dose oral powder (Miralax) Allergies Allergy/AdvReac Type Severity Reaction Status Date / Time sesame seed (SESAME SEED) Allergy Severe ANAPHYLAXIS Verified 03/13/25 14:32 walnut (WALNUT) Allergy Severe ANAPHYLAXIS Verified 03/13/25 14:32 Review of Systems Review of Systems: Positive head injury Yes all other systems are reviewed and are negative [facility] Past Medical History Attestation statement: The following information was validated with the patient. Medical History No known health problems Social History Social History Smoked in Last 30 Days: No Use of substances other than those prescribed or required for medical reasons: No Advance Directives: No Advance Directives Information Provided: No Do you have a plan to hurt others: No Plan Patient : No Physical Exam Vital Signs: Vital Signs: Last Vital Signs Temp 97.5 F 03/13/25 15:30 Pulse 100 03/13/25 15:30 Resp 14 03/13/25 15:30 BP 137/88 03/13/25 15:30 Pulse Ox 100 03/13/25 15:30 O2 Del Method Room Air 03/13/25 15:30 BMI result Body Mass Index 23.4 Appearance: Alert. Oriented X3. No acute distress. Eyes: Pupils equal, round and reactive to light. ENT: Pharynx normal. Neck: Normal inspection. Neck supple. No lymph nodes noted. No crepitus CVS: Normal heart rate and rhythm. Pulses normal. Normal S1 and S2 Respiratory: No respiratory distress. Breath sounds normal. No Wheezing. No rales Abdomen: Soft and nontender. No rigidity. No distention. good BS x4 Skin: Skin warm and dry. Normal skin color. Normal skin turgor. Extremities: No lower extremity edema. Neurovascular intact to all extremities. No Lacerations. No Rash Neuro: Oriented X 3. No motor deficit. No sensory deficit. Moving all extermities. No slurred speech Medical Decision Making Medical Decision Making MDM Narrative: Patient well-appearing no acute distress. Neurologically intact. Lungs are clear. Not on blood thinners. CT scan of the head by my interpretation was grossly negative I reviewed radiology's reading which was the same. Will discharge patient home. Head injury precaution. Differential Diagnosis Differential Diagnoses: The differential diagnosis associated with the presentation includes Head injury concussion, subdural bleed Admission/Observation Consideration of admission/observation: Escalation of care including admission/observation considered Independent Interpretation I performed an independent interpretation of an: CT Scan (CT head grossly negative) Radiology Impression Discussion of test interpretation with radiology: I have reviewed the radiologist's reading. Chronic Conditions Head injury Social Determinants Patient?s care significantly limited by Social Determinants of Health including: Problems related to primary support group Discharge Plan Discharge Clinical Impression: Closed head injury Patient Disposition: Home, Self-Care Instructions: Head Injury (ED) Prescriptions: No Action polyethylene glycol 3350 [Miralax] 17 gram/dose powder 17 g PO DAILY Qty: 119 0RF Referrals: Noam Garcia MD [Primary Care Provider, Medical] - 3 days Print Language: Yakut
[2025-03-13 17:05] VITALS: BP 119/82; PULSE 76; RESP 14; TEMP 36.3; O2SAT 98
== END 2025-03-13 17:11 | disposition home or self-care (01) ==
PROVIDERS: Emergency Provider Emergency Medicine Emergency Medical Services; PCP Internal Medicine
DX: S09.90XA Unspecified injury of head, initial encounter (principal); W22.09XA Striking against other stationary object, initial encounter; Y93.9 Activity, unspecified; Y92.019 Unspecified place in single-family (private) house as the place of occurrence of the external cause; Y99.9 Unspecified external cause status
CPT/HCPCS: 70450; 99284

== ENCOUNTER → 2025-03-13 14:31 | Outpatient (BNV) | payer OTHER, SELFPAY | PROVIDERS: Emergency Provider Emergency Medicine Emergency Medical Services; PCP Internal Medicine; Visit Provider Nuclear Medicine | DX: G44.309 Post-traumatic headache, unspecified, not intractable (principal) | CPT/HCPCS: 70450 ==

== ENCOUNTER 2025-04-05 14:54 | Outpatient (REF) | payer OTHER, SELFPAY ==
--- NOTE | ~2025-04-05 | MR_ITS ---
CLINICAL HISTORY: HEAD TRAUMA, FRONTAL LOBE RT EYE, VISION CHANGES, OPTIC NERVE DYSFUNCTION Head trauma, frontal lobe above right eye, vision changes, headaches. R/o brain bleed. Optic nerve dysfunction, occult occular fx MRI ORBITS WITHOUT AND WITH CONTRAST Comparison: MR/HI - MR HEAD/BRAIN WO/W CON - 04/05/25 15:12 EDT Findings: Bony orbit, bilateral globes and preseptal soft tissues appear intact. Retrobulbar fat, extraocular muscles and optic pathways unremarkable. Orbital apex and cavernous sinuses unremarkable. Cranial nerve 7 and 8 appear symmetrical. No sinus fluid. Probable retention cyst in the left maxillary sinus. 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 Impression: 1. No orbital pathology. This document has been electronically signed by: Ebony Mesa DO on 04/05/2025 17:00:14
--- NOTE | ~2025-04-05 | MR_ITS ---
CLINICAL HISTORY: Head trauma, frontal lobe above right eye, vision changes, headaches. R/o brain bleed. Optic nerve dysfunction, occult occular fx MR BRAIN WITH AND WITHOUT GADOLINIUM Comparison: CT/SR - CT HEAD/BRAIN WO IV CON - 03/13/25 15:01 EDT Findings: No restricted diffusion. No intra-axial mass or hemorrhage. No midline shift. No hydrocephalus. Vascular flow voids are intact. Visualized orbits: No acute abnormalities. There is a large probable retention cyst in the left maxillary sinus. No sinus or mastoid fluid. No focal bone lesion. There is an 8 mm circumscribed nonenhancing cystic lesion in the left pharyngeal recess (fossa of Rosenmuller ). Finding is stable compared to prior CT, allowing for modality differences. IMPRESSION: 1. No acute infarct, hemorrhage or intra-axial mass lesion. 2. 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 This document has been electronically signed by: Ebony Mesa DO on 04/05/2025 16:55:38
--- OUTSIDE RECORDS SUMMARY | 2025-04-05 16:11 | XMS_ITS | Data Portability ---
Author Organization [facility] Telehealth Patient Home Address [address] [place] [address] Assessment Encounter Date Assessment Date Assessment LastModified [...] Modified Time Details Appointments None recorded. Lab None recorded. Referral ophthalmol ogist referral - fall, head strike frontal lobe above right eye, having eye pain, vision changes, spotting and partial vision loss x 2 days 2024 025 [email or web address] 10 [facility], [address] [place] [address] Dr [facility] [address], [place], [address], 5 11:43:36 Procedures None recorded. Surgeries None recorded. Imaging MRI, brain + orbits, w/wo contrast 2024 025 [facility], [address] [place], [address], 5 12:14:31 Medication Orders Zithromax Z-Ajay 250 mg tablet 2022 023 [email or web address] [facility], [address] [place], [address], 5 10:55:56 sumatripta n 50 mg tablet 2022 023 FABIO [facility]2024, [address] [place], [address], 3 09:54:39 prednisone 10 mg tablet 2022 023 [email or web address] [facility]2024, [address] [place], [address], 3 11:19:42 erythromyc in 5 mg/gram (0.5 %) eye ointment 2022 023 [email or web address] [facility]2024, [address] [place], [address], 5 10:56:02 Patient TargetsNo targets recorded. Patient InstructionsNo instructions recorded. 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 [address] (Medical Records) [address] [place] [address], [address], 03/15/2025 11:50:53 Result Notes None recorded. Problems Name Problem SNOMED Code Status Onset Date Resolution Date Notes Provider Name and Address Organization Details Recorded Time Multiple benign melanocyt ic nevi 979720533 Active 2021 Not Available [facility] 2 04:36:07 Acute pharyngit is 033347976 Active 2021 Not Available [facility] 2 04:36:07 Diarrhea 62932436 Active 2021 NICOLE GLOVER [address] [place] [address], [address], [facility] 2 14:10:31 Clostridi um difficile colitis 188417768 Active 2021 Noam Garcia, [address] [place] [address], [address], [facility] 2 14:53:31 Colitis 77868617 Active 2021 NICOLE GLOVER [address] [place] [address], [address], [facility] 2 12:16:40 Celluliti s of eyelid 394820658 Active 2022 NICOLE GLOVER [address] [place] [address], [address], [facility] 3 11:03:11 Eczema 49795271 Active 2022 NICOLE GLOVER [address] [place] [address], [address], [facility] 3 11:05:37 Migraine without aura 35761987 Active 2022 NICOLE GLOVER [address] [place] [address], [address], [facility] 3 09:53:23 Acute sinusitis 35124453 Active 2022 NICOLE GLOVER [address] [place] [address], [address], [facility] 3 15:00:18 Palpitati ons 77601123 Active 2023 NICOLE GLOVER [address] [place] [address], [address], [facility] 4 11:10:24 Transient visual loss of right eye 488402168445 103 Active 2024 NICOLE GLOVER [address] [place] [address], [address], [facility] 5 11:30:26 Pain of right eye 098669165533 102 Active 2024 NICOLE GLOVER [address] [place], [address], [facility] 5 11:30:39 Anxiety 15961986 Active 2017 Not Available [facility] 2 04:36:07 Problem Notes None recorded. Medical Equipment None Reported. Allergies Allergen ID Allergen Name Allergen Category Reaction Reaction Severity Criticality Documentation Date Start Date Code Code System Note Provider Name and Address Organization Details Recorded Time 6024 Augmentin medicatio n Not available Not available Not available 06/13/2022 89485 2 RxNorm c harini Garcia DO [address] [place], [address], [facility] 2 11:45:14 Medications Name Sig [...] 1 TABLET DAILY FOR 4 DAYS DIRECTED 03/29 completed Not Available Not Available Not Available Lidocaine Viscous 2 % mucosal solution [...] THE AFFECTED EYE(S) 3 TIMES PER DAY 03/29 completed Not Available Not Available Not Available oseltamivir 75 mg capsule 03/11 completed [...] propionate 50 mcg/actuati on nasal spray,suspe nsion Omega 1 spray every day by intranasa l route. 03/19 completed Not Available Not Available Not Available sertraline 50 mg tablet 02/07 completed Not Available Not Available Not Available dicyclomine 10 mg capsule 03/19 completed Not Available Not Available Not Available amoxicillin 875 mg-gabrielle ramirez clavulanate 125 mg tablet TAKE 1 TABLET BY MOUTH 2 TIMES A DAY FOR 14 DAYS. 05/21 completed Not Available Not Available Not Available Simpesse 0.15 mg-30 mcg (84)/10 mcg(7) tablets,3 month dose pack TAKE 1 TABLET BY MOUTH EVERY DAY active Not Available Not Available No t Available Vitals Date Recorded Body height Oxygen saturation Oxygen saturation in Arterial blood by Pulse oximetry Heart rate Systolic And Diastolic Provider Name and Address Organization Details Last Updated DateTime 3 156.85 cm 98 % 98 % 100 /min 128/70 mm[Hg] Lily Thayer [facility] 3 10:55:44 Date Recorded Body height Body mass index (BMI) Body weight Heart rate Oxygen saturation Oxygen saturation in Arterial blood by Pulse oximetry Systolic And Diastolic Provider Name and Address Organization Details Last Updated DateTime 3 156.85 cm 22.1 kg/m2 00691.0 8 g 117 /min 98 % 98 % 128/80 mm[Hg] Lorie Santos [facility] 3 09:45:41 Date Recorded Body weight Oxygen saturation Oxygen saturation in Arterial blood by Pulse oximetry Heart rate Systolic And Diastolic Provider Name and Address Organization Details Last Updated DateTime 5 28715.2 7 g 98 % 98 % 100 /min 120/72 mm[Hg] Kenzie Haq [facility] 5 10:57:54 Social History Question Answer Notes LastModified by Organizat ion Details LastModified Time Tobacco Smoking Status Never Smoker [facility] 03/11/2018 10:44:21 What Was The Date Of Your Most Recent Tobacco Screening? 03/29/2025 [email or web address] Information not available 03/29/2025 Sex: Unknown Functional Status Question Answer Note LastModified by Organization D etails LastModified Time Do you or have you ever used any other forms of tobacco or nicotine? No Information not available 03/19/2023 Mental Status None recorded. Family History Relationship [...] 50 mcg/0.25mL dose 1 completed Not Available [facility] 05/03/2022 04:36:08 COVID-19, mRNA, LNP-S, PF, 100 mcg/0.5mL dose or 50 mcg/0.25mL dose 1 completed Not Available [facility] 05/03/2022 04:36:08 Tdap 5 completed Aline radford [place] [facility] 01/13/2025 15:56:51 Tdap 0 completed Not Available [facility] 05/03/2022 04:36:08 meningococcal C conjugate 1 completed Not Available [facility] 05/03/2022 04:36:08 meningococcal C conjugate 6 completed Not Available [facility] 05/03/2022 04:36:08 pneumococcal, unspecified formulation 0 completed Not Available [facility] 05/03/2022 04:36:08 pneumococcal, unspecified formulation 0 completed Not Available [facility] 05/03/2022 04:36:08 Past Encounters Encounter ID Performer Location Encounter Start Date Encounter Closed Date Diagnosis/Indication Diagnosis SNOMED-CT Code Diagnosis ICD10 Code Diagnosis Note [id number] DO [facility] [address] [facility],[place] [address] 03/11/2018 10:37:11 03/11/2018 11:36:36 Adult health examination 909925401 Z00.00 Active or passive immunization 582887211 Z23 discussed HPV vaccine [id number] Noam Stephanie Garcia [facility] [address] [facility], [place] [address] 09/10/2018 14:16:28 09/10/2018 15:01:55 Urinary tract infectious disease 48325962 N39.0 [id number] Noam Stephanie Garcia [facility] [address] [facility], [place] [address] 11/17/2018 11:26:51 11/17/2018 12:37:51 Tachycardia 1612375 R00.0 Dyspnea 136201790 R06.02 Anxiety 18106528 F41.9 [id number] Noam Garcia [facility] [address] [facility], [place] [address] 11/19/2018 11:12:46 11/19/2018 11:41:37 Sinus tachycardia 76451933 R00.0 Dyspnea 808800314 R06.02 Anxiety 43789296 F41.9 Renewal of prescription 770937794 Z76.0 [id number] Noam Garcia [facility] [address] [facility], [place] [address] 2020 15:25:05 2020 16:00:32 Adult health examination 557459468 Z00.00 will do blood work Venereal d isease screening 025524058 Z11.3 did clean catch when was supposed to do dirty urine will do a chlamydia and gonorrhea panel [id number] Noam Garcia [facility] [address] [facility], [place] [address] 11/18/2020 08:26:20 11/18/2020 16:37:59 Irritable bowel syndrome 40073868 K58.9 will send in referral to GI for patient as the referral was not sent for her in the ER and no one has contacted her Anxiety 80602008 F41.9 possible component of her IBS, patient does not wish to start on medication s at this time [id number] Noam Garcia [facility] [address] [facility], [place] [address] 07/11/2021 10:41:44 07/11/2021 16:05:31 Acute maxillary sinusitis 59862826 J01.00 given anbx, flonase and benzonatat e for symptoms Acute bronchitis 1617450 2 J20.9 tested at [facility] today, will call to let us know results Cough 43966975 R05.1 given anti-tussi ve Posterior rhinorrhea 758 09610 R09.82 flonase for post-nasal [id number] Noam Garcia DO [facility] [address] [facility] [address] [address] 03/19/2022 13:32:51 03/19/2022 14:21:27 Uses oral contraception 9736785 Z30.41 will send refill Multiple b enign melanocytic nevi 818542348 D22.5 will monitor [id number] NICOLE GLOVER [facility] [address] [facility] [address] [address] 04/30/2022 11:27:00 04/30/2022 14:37:32 Acute pharyngitis 989875328 J02.0 will fu with abx and steriod [id number] NICOLE GLOVER [facility] [address] [facility] [address] [address] 05/21/2022 15:31:49 05/21/2022 15:51:11 Active or passive immunization 543785617 Z23 advised Adult heal th examination 230912699 Z00.00 bw goodBP stable Depression screening 171 519579 Z13.31 stable [id number] Noam Garcia DO [facility] [address] [facility] [address] [address] 06/13/2022 10:50:09 06/13/2022 13:27:34 Clostridium difficile colitis 342664786 A04.72 possible with timing of diarrhea and antibiotic use (augmentin )will tx with vanco ordered by RT and will see how she doeswill need to rechk c diff titre AFTER she has completed abx will arrange to see RT in a couple weeks [id number] Noam Garcia DO [facility] [address] [facility],[place] [address] 07/04/2022 10:08:52 07/04/2022 13:33:05 Clostridium difficile colitis 209059121 A04.72 will restart another 10 days of vanco to ensure complete resolution of symptoms and infection [id number] Noam Garcia [facility] [address] [address] 07/18/2022 11:54:03 07/18/2022 13:54:22 Clostridium difficile colitis 559371396 A04.72 will recheck labs Colitis 77632919 K52.9 will fu with lab work and stool culture [id number] Noam Garcia [facility] [address],[place] [address] 10/12/2022 10:51:01 10/12/2022 12:17:40 Cellulitis of eyelid 953219317 H00.033 start bothalso use abx Eczema 70682565 L30.9 fu in a month [id number] Noam Garcia [facility] [address], [place] [address] 10/19/2022 09:09:17 10/22/2022 16:28:15 Cellulitis of eyelid 562427618 H00.033 resolvedwi ll just monitor for now [id number] Noam Garcia [facility] [address], [place] [address] 03/19/2023 09:42:32 03/19/2023 10:19:19 Migraine without aura 18382624 G43.009 will trial patient on abortive therapy and she will let me know if anything changes [id number] Noam Garcia [facility] [address],[place] [address] 06/25/2023 11:20:50 06/25/2023 15:39:17 Acute sinusitis 43790232 J01.90 will start short course z pakavoid any other meds due to c diff hxavoiding [place] [id number] Noam Garcia [facility] [address] [facility],[place] [address] 03/29/2025 10:47:13 03/29/2025 14:09:18 Transient visual loss of right eye 7503496664 61279 H53.121 recommende d MRI with without contrast and thorough eye examput in for STAT MRI and STAT optho referral for ENRIQUE evaluation Pain of right eye 278904 5845 62709 H57.11 will set up with STAT Health Concerns Section Related Observation LastModified by Organization Detai ls LastModified Time None Recorded Concern Status LastModified by Organization Details LastModified Time None Recorded Advance Directives Directive None Recorded Payers Insurance Date Sequence Insurance Name Policy Number Policy Guiterrez Covered Member ID Gutierrez Member ID Guarantor Name 03/29/2025 1 [facility] Go Paul [id number] Go Paul 03/29/2025 1 [employer] (POS) [id number] Go Paul [id number] Go Paul 03/29/2025 [employer] Go Paul 03/29/2025 1 [facility] (PPO) [id number] Go Paul [id number] Go Paul Notes Date Note Type Note Provider Name a nd Address Organization Details Recorded Time 3 text/html c/o eczema eyes swollen, red [...] vera and cool compresses NICOLE GLOVER [address] [facility], [place], [address], [facility] 10/12/2022 11:10:26 3 text/html 1 week f/u tele-med phone callpatient consents to phone call patient reports that treatment workedher eyelids are back to baselineno EOMI, no discharge, no itching also the medications did not upset her stomachher bowel movement are regular, well formed will monitorshe will update me next week if it starts to worsen NICOLE GLOVER [address] [place], [address], [facility] 10/19/2022 11:25:18 3 text/html c/o [...] if it was helpful or not NICOLE GLOVER [address] [place], [address], [facility] 03/19/2023 09:58:30 3 text/html c/o sinus infection telemed phone callpt consents to phone call patient has had a fever Tmax 100 F, facial pain, sinus pressure, green mucus production and teeth painnasal congestion and post nasal start on z ajay monitor symptomsif she develops diarrhea she knows to call immediately NICOLE GLOVER [address] [place], [address], [facility] 06/25/2023 15:03:33 5 text/html c/o right eye pain and headaches after fall with head injury the patient reports that she did fall after getting some postural dizziness, hit the front of her head, above the right eyestarted developing headaches behind the right eye, the patient reports that is is a constant acheshe is having pain with EOM and black spots in her vision, asked if she felt like it was a curtain of the eye, she said it sort of seems like that, but her vision is constantly impaired, she has it mostly on Saturday into Saturday before it cleared upno dizziness, does have some disorientation happening as well due to this peripheral vision intactrecommended MRI w wo contrasthad CT in the ER which was wnl also needs fu eval with the optho for ?retinal detachment/injury NICOLE GLOVER [address] [place] [address], [address], [facility] 03/29/2025 11:39:55 OBGyn Episode No OBEpisode recorded.
--- OUTSIDE RECORDS SUMMARY | 2025-04-05 16:11 | XMS_ITS | Encounter Summary ---
Author Organization [facility] Address [address] [place] [address] Phone Care Team Providers Care Bottle Selector Name Role Phone Nayana Morales MD Primary Care Provider [phone] Encounter Details Date Type Department Care Team (Late st Contact Info) Description 05/01/2017 Conversion Encounter [facility] - [address], [address] [place] [address] Nayana Morales MD [address] [place] [address] Social History Tobacco Use Types Packs/Day Years [...] on filedocumented in this encounter Care Teams Bottle Selector Relationship Specialty Start Date End Date Nayana Morales MD [address] [place] [address] PCP - General 11/13/16 09/22/20 documented as of this encounter
--- OUTSIDE RECORDS SUMMARY | 2025-04-05 16:11 | XMS_ITS | Patient Health Record ---
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 Name Role Phone Noam Garcia Primary Care Provider Alexis Owens Unavailable [phone] Allergies Allergen (clinical drug ingredient) Drug/Non Drug Allergy documented on EMR Reaction Allergy Type Onset Date Status sesame and tree nuts (uncoded) Unknown Allergy Active Reason For Referral No Information Medications Medication SIG (Take, Route, Frequency, Duration) Notes Start Date End Date Status Levonorgest-Eth Estrad 91-Day Active Dicyclomine HCl 10 MG 1-2 Orally Q 6 carmelo rs prn abdominal discomfort/cramps for 30 day(s) 02/16/2021 Active Immunizations Vaccine Route Administration Date Status Comme nts Influenza Unknown 02/16/2021 Refused Social History Tobacco Use: Social History Observation Description Date Details (start date - stop date) Never Smoker NA - NA Tobacco Use/Smoking Question Answer Notes Patient is a nonsmoker Alcohol Screen Question Answer Notes Did you have a drink contain ing alcohol in the past year? Yes How often did you have a dri nk containing alcohol in the past year? Never (0 point) How many drinks did you have on a typical day when you were drinking in the past year? 1 or 2 drinks (0 point) How often did you have 6 or more drinks on one occasion in the past year? Never (0 point) Points 0 Interpretation Negative Section Notes: Nonsmoker; no sig alcohol Problems Problem Type SNOMED Code ICD Code Onset Dates Problem Status W/U Status Risk Notes Problem 35082184 Lower abdominal pain (R10.30) Active confirmed Problem 86849502 Irritable bowel syndrome with both constipation and diarrhea (K58.2) Active confirmed Plan Of Treatment Pending Test Test Name Order Date LIVER PROFILE 02/16/2021 AMYLASE 02/16/2021 CRP 02/16/2021 CBC w DIFF 02/16/2021 SED RATE (ESR) 02/16/2021 CELIAC PANEL #10 02/16/2021 Lipase 02/16/2021 TSH reflex Free T4 02/16/2021 US pelvic complete 02/16/2021 Insurance Providers Payer Name Payer Address Payer Phone Subscriber Number Group Number Insured Name Patient Relationship to Insured Coverage Start Date Coverage End Date [facility] Navigator Plan(REFERR AL IS NEEDED) [address] [place] [address] [id number] MARC OLIVERA Self - patient is the insured Medical (General) History Medical History History ICD Code Denies [place],DM,CVA,Lung disease,renal dise ase IBS Surgical History Surgery Date(Month/Year)
== END 2025-04-05 14:55 | disposition home or self-care (01) ==
LOC: HO.MRI 14:54
PROVIDERS: Visit Provider Physician Assistant
DX: S09.90XA Unspecified injury of head, initial encounter (principal); H53.121 Transient visual loss, right eye; R51.9 Headache, unspecified; W19.XXXA Unspecified fall, initial encounter
CPT/HCPCS: 70543; 70553; A9585

== ENCOUNTER → 2025-04-05 15:10 | Outpatient (BNV) | payer BC, SELFPAY | PROVIDERS: Visit Provider Radiology Diagnostic Radiology | DX: S09.90XA Unspecified injury of head, initial encounter (principal); H53.8 Other visual disturbances; R51.9 Headache, unspecified; H47.019 Ischemic optic neuropathy, unspecified eye | CPT/HCPCS: 70543; 70553 ==